=== PATIENT | female | born 1960 | race African-American/Black ===

== ENCOUNTER 2018-08-11 14:48 | Emergency (ER) | payer BC ==
[~2018-08-11] VITALS: Ht 160 cm; Wt 72.6 kg
[~2018-08-11 14:48] MED LIST: BACTRIM-DS1 EA PO; NAPROXEN500 M1 PO; NORCO 5-325 TA1 EACH PO
[2018-08-11 15:04] VITALS: BP 111/76
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
--- NOTE | 2018-08-11 16:18 | Diagnostic Imaging Report ---
Indication: Reason For Exam: PAIN Technique: 2 views of the right hip, one view of the pelvis Comparison: none Findings: No acute fractures. No dislocations. Ossific densities adjacent to the greater trochanter on the right may represent calcific tendinosis of the muscle attachment or old injury. Joint spaces are preserved Impression: No acute process
--- NOTE | 2018-08-11 16:23 | Diagnostic Imaging Report ---
Indication: Right mid rib pain, status post fall Technique: One view of the chest, 2 views of the right ribs Comparison: none Findings: Chest radiograph demonstrates bibasilar linear parenchymal atelectatic changes. The lungs and pleural spaces are otherwise clear. The heart size is normal. There are fractures of the right anterolateral fifth, sixth, and seventh ribs. No associated pneumothorax. Impression: Positive for fractures of the right fifth, sixth, and seventh ribs. Findings discussed by phone with Suzan Sharif in the emergency room at the time of interpretation
[2018-08-11] MEDS ORDERED: NORCO 5-325 TA1 EACH ORAL (16:27)
[2018-08-11 16:42] VITALS: BP 120/74
== END 2018-08-11 16:44 | disposition home or self-care (01) ==
LOC: EMR 15:19
DX: S22.41XA Multiple fractures of ribs, right side, initial encounter for closed fracture (principal); S70.01XA Contusion of right hip, initial encounter; W19.XXXA Unspecified fall, initial encounter; Y92.811 Bus as the place of occurrence of the external cause; Z88.0 Allergy status to penicillin; Z88.6 Allergy status to analgesic agent
CPT/HCPCS: 72170; 99284